=== PATIENT | female | born 1950 | race Hispanic/Latino ===

== ENCOUNTER 2020-04-12 06:34 | Observation (INO) | payer MEDICARE, OTHER ==
--- NOTE | 2020-04-08 14:20 | Diagnostic Imaging Report ---
EXAMINATION: CHEST 2 VIEWS INDICATION: Preop for surgery ^[id number] ^1325 ^PRE OP COMPARISON: None FINDINGS: TUBES and LINES: None. LUNGS: Lungs are well inflated. Lungs are clear. There is no evidence of pneumonia or pulmonary edema. PLEURA: No pleural effusion or pneumothorax. HEART AND MEDIASTINUM: Tortuous thoracic aorta. The cardiomediastinal silhouette is otherwise unremarkable. BONES AND SOFT TISSUES: No acute osseous lesion. Soft tissues are unremarkable. UPPER ABDOMEN: No free air under the diaphragm. IMPRESSION: Tortuous thoracic aorta. No acute thoracic abnormality. Signed by: Dr. Phillip Rodriguez M.D. on 04/08/2020 2:17 PM
[~2020-04-12] VITALS: Ht 152.4 cm; Wt 90.3 kg
[~2020-04-12 06:34] MED LIST: ATORVASTATIN CA20 MG PO; CELEBREX100 MG PO; LOSARTAN-HCTZ1 EAC2 PO; SODIUM CHLORIDE 0.9% 500ML 500 ML ONE; TRANEXAMIC ACID 1,000 MG/10 ML ML ONE; VANCOMYCIN HCL 1,000 MG ONE
[2020-04-12] MEDS ORDERED: CELECOXIB 200 MG CAP ONE (07:44)
[2020-04-12] MEDS ORDERED: GABAPENTIN 300 MG CAP ONE (07:45)
[2020-04-12] MEDS ORDERED: DEXAMETHASONE SOD PHOS 10 MG/1 ML VIAL ONE (07:45)
[2020-04-12] MEDS ORDERED: CEFAZOLIN SOD 1 GM/NS 50ML 100 ML IV ONE (07:45)
[2020-04-12] MEDS ORDERED: ROPIVACAINE 246.25 MG, EPINEPHRINE HCL 1:1000 1ML 0.5 MG, CLONIDINE HCL 0.08 MG, KETORO... INJ ONE ×5 (08:00)
[2020-04-12] MEDS ORDERED: ONDANSETRON HCL INJ 2MG/ML 2ML 2 MG/ML VIAL IV PRN (10:45)
[2020-04-12] MEDS ORDERED: DIPHENHYDRAMINE HCL INJ 50 MG/ML VIAL IV PRN (10:45)
[2020-04-12] MEDS ORDERED: HYDROCODONE/APAP 5MG-325MG TAB PO PRN (10:45)
[2020-04-12] MEDS ORDERED: DOCUSATE SODIUM 100 MG CAP PO PRN (10:45)
[2020-04-12] MEDS ORDERED: HYDROCODONE/APAP 7.5MG-325MG 1 EA TAB PO PRN (10:45)
[2020-04-12] MEDS ORDERED: ACETAMINOPHEN 650 MG SUPP PR PRN (10:45)
--- NOTE | 2020-04-12 11:12 | Diagnostic Imaging Report ---
Exam: Left knee 2 views History: Postoperative evaluation Comparison: None. Findings: See impression Impression: Postoperative knee radiograph for a left total knee arthroplasty with expected postsurgical change. No complication. Signed by: Dr. Cloeman Perez M.D. on 04/12/2020 11:08 AM
[2020-04-12] MEDS ORDERED: FENTANYL CITRATE/PF 100MCG/2 ML INJ ONE ×2 (11:17→12:59)
--- NOTE | 2020-04-12 11:18 | Operative Report ---
DATE OF PROCEDURE: 04/12/2020 SURGEON: Reilly Pacheco MD CONTROL SYSTEMS TECHNICIAN: Paramjit Sibley, certified PA. PREOPERATIVE DIAGNOSIS: Osteoarthritis, left knee. POSTOPERATIVE DIAGNOSIS: Osteoarthritis, left knee. PROCEDURE: Left total knee arthroplasty, * added complexity secondary to BMI. INDICATIONS: The patient is a 69-year-old lady, who has end-stage arthritis of her left knee. She has failed conservative management and would like to proceed with a left total knee replacement. The risks and benefits of the procedure have been discussed at length. All of her questions have been answered. The added challenges, the potential risks for complications due to her body mass index of 39.1 have been explained. She states she understands and feels like she has made reasonable efforts to lose weight. She would like to proceed with the surgery. PROCEDURE IN DETAIL: The patient was brought to the operating room and placed under general anesthetic. She received a regional block, tranexamic acid, and prophylactic antibiotics in the holding area. Her left lower extremity was prepped and draped in a sterile manner. Preoperative time-out was performed. The extremity was exsanguinated and a proximal tourniquet was inflated to 300 mmHg. An anterior incision with a medial parapatellar arthrotomy was performed. Care was taken to limit the amount of the subcutaneous dissection and creation of space. Added challenges were encountered due to the difficult exposure and altered surgical field. The knee was brought up into flexion with the patella everted. The anterior cruciate ligament was chronically deficient. She had complete loss of articular cartilage in the medial compartment down to polished subchondral bone. Meniscal remnants and marginal osteophytes were removed. An extramedullary cutting guide was placed and the proximal tibia was resected. The tibial base plate was a size 3. Again, challenges were encountered getting appropriate exposure. The central fin punch was impacted and attention was directed towards the distal femur. An intramedullary cutting guide was used to resect the distal femur in 6 degrees of valgus and rotation, referencing off a combination of landmarks including Whitesides line, the epicondylar axis, and the posterior condyles. The femoral component was a size 4. The anterior, posterior, and notch cuts were made. A trial reduction was performed. A 9 mm posterior stabilized tibial insert provided appropriate soft tissue balancing in full extension and 90 degrees of flexion. The patella was resurfaced with a 29 mm x 9 mm patellar button. The thickness was checked before and after resurfacing and was right around 22 mm. Patellar tracking was concentric. The trial implants were then all removed. The knee was thoroughly irrigated with a shower tip pulsatile lavage. A 100 mL premixed pericapsular HARVEY injection was injected into the surrounding soft tissue. The components were cemented into place using a single mix of high viscosity Biomet cement preloaded with antibiotics. Care was taken to make sure all extravasated cement was removed. The wound was further irrigated while the cement cured. The arthrotomy was closed after sprinkling 500 mg of vancomycin powder into the wound. Interrupted #1 Ethibond was used to close the arthrotomy. The knee was put through flexion and extension to ensure a secured closure. The skin was carefully closed with subcuticular Vicryl and elke. A sterile Aquacel bandage was applied. The patient was extubated and transported to the recovery room in stable condition. Blood loss was minimal. All needle and sponge counts were correct. Reilly Pacheco MD DR/JITENDRA /[id number]
[2020-04-12] MEDS ORDERED: ROPIVACAINE 0.5% 5 MG/ML 30 ML SDV ONE (12:32)
[2020-04-12] MEDS ORDERED: LIDOCAINE 2%/ EPINEPHRINE 20ML MDV ONE (12:32)
[2020-04-12] MEDS ORDERED: MIDAZOLAM HCL 2 MG/2 ML VIAL ONE (12:59)
[2020-04-12] MEDS ORDERED: SEVOFLURANE INHAL SOLN 250 ML PEN BTL ONE (13:18)
[2020-04-12] MEDS ORDERED: PROPOFOL IV EMULSION 10 MG/ML 20 ML VIAL ONE (13:18)
[2020-04-12] MEDS ORDERED: KETOROLAC TROMETHAMINE 30 MG/ML VIAL ONE (13:18)
[2020-04-12] MEDS ORDERED: LIDOCAINE HCL 2% LOCAL INJ 5 ML SDV VIAL INJ ONE (13:18)
[2020-04-12] MEDS ORDERED: ONDANSETRON HCL INJ 2MG/ML 2ML 2 MG/ML VIAL ONE (13:18)
--- NOTE | 2020-04-12 14:58 | NUR ---
RECEIVED REPORT FROM MARITIME ENGINEER. PT HAD LEFT TOTAL KNEE SURGERY. COMING TO ROOM 113.
[2020-04-12 15:07] VITALS: BP 117/60
[2020-04-12 15:13] VITALS: BP 113/68
[2020-04-12] MEDS ORDERED: ACETAMINOPHEN 1000 MG/100 ML IV PRN (16:00)
[2020-04-12 16:35] VITALS: BP 113/68
[2020-04-12] MEDS: SODIUM CHLORIDE 0.9% 1000ML 1,000 ML IV SCH ×2 (17:55→20:45)
[2020-04-12] MEDS: ASPIRIN 325 MG TAB PO SCH (17:55)
[2020-04-12] MEDS: CELECOXIB 100 MG CAP PO SCH (17:55)
[2020-04-12] MEDS: CEFAZOLIN SOD 1 GM/NS 50ML 50 ML IV SCH (17:55)
--- NOTE | 2020-04-12 18:43 | NUR ---
WALKING ROUNDS PERFORMED, RECEIVED PT LYING SEMI FOWLERS IN BED, AAOX3, RR EVEN AND NON-LABORED, ON ROOM AIR. NO S/SX OF DISTRESS NOTED. MONTSERRAT WRAP TO (L) LEG CDI. LEFT PT LAYING SEMI FOWLERS IN BED, BED IN LOW LOCKED POSITION, SIDE RAILS UPX2, CALL LIGHT AND PHONE WITHIN REACH.
[2020-04-12 20:00] VITALS: BP 107/54
[2020-04-12] MEDS ORDERED: ZOLPIDEM TARTRATE 5 MG TAB PO PRN (21:00)
[2020-04-12] MEDS ORDERED: ATORVASTATIN 40 MG TAB PO SCH (21:00)
[2020-04-12] MEDS ORDERED: ATORVASTATIN 20 MG TAB PO SCH (21:00)
[2020-04-12 21:47] VITALS: BP 107/54
[2020-04-12] MEDS: KETOROLAC TROMETHAMINE 30 MG/ML VIAL IV PRN (23:27)
[2020-04-13] VITALS: BP 115/55
[2020-04-13] MEDS: CEFAZOLIN SOD 1 GM/NS 50ML 50 ML IV SCH ×2 (01:06→10:36)
[2020-04-13 04:00] VITALS: BP 116/54
[2020-04-13 05:25] LABS: HEMATOCRIT 35.4 % (34.2-44.1); HEMOGLOBIN 12.2 g/dL (12.0-16.0)
--- NOTE | 2020-04-13 05:26 | Consultation ---
DATE OF CONSULTATION: REASON FOR CONSULTATION: Postop medical management. HISTORY OF PRESENT ILLNESS: The patient is a 69-year-old lady, status post left knee arthroplasty, who is doing well postoperatively with minimal pain and denies any fever, chills, nausea, vomiting, headache, shortness of breath, or dizziness on review of systems. PAST MEDICAL HISTORY: Hypertension and hyperlipidemia. HOME MEDICATIONS: Celexa, losartan, hydrochlorothiazide, and atorvastatin. SOCIAL HISTORY: She works full-time. Denies smoking or alcohol. FAMILY HISTORY: Noncontributory. PHYSICAL EXAMINATION: VITAL SIGNS: Temperature 98.3, pulse 52, blood pressure 115/55, sats 96% on room air. GENERAL: No apparent distress, lying in bed. NECK: Supple. CARDIOVASCULAR: Regular rate and rhythm. No murmurs, rubs, or gallops. LUNGS: Clear to auscultation bilaterally. ABDOMEN: Good bowel sounds. Soft, nontender. EXTREMITIES: No clubbing or cyanosis. NEUROLOGIC: Nonfocal. Left knee is bandaged with no seepage. ASSESSMENT AND PLAN: 1. Left knee pain. We will continue with postoperative care and physical therapy. 2. Anemia. Check a CBC. 3. Hypertension. Continue to monitor blood pressure and continue with her home medications. 4. Hyperlipidemia. We will continue with her atorvastatin. Please see hospital chart for full details. MD SILVINO Chan/JITENDRA /[id number]
--- NOTE | 2020-04-13 06:00 | NUR ---
(L) MONTSERRAT WRAP REMOVED, AQUACEL DRESSING CDI TO (L) KNEE. APPLIED CRISTIAN HOSE TO (L) LEG.
[2020-04-13] MEDS: SODIUM CHLORIDE 0.9% 1000ML 1,000 ML IV SCH (06:39)
--- NOTE | 2020-04-13 07:02 | NUR ---
bedside shift report received from PM nurse. pt in stable condition.
[2020-04-13 07:15] VITALS: BP 116/54
[2020-04-13 08:08] VITALS: BP 101/49
[2020-04-13] MEDS ORDERED: HYDROCHLOROTHIAZIDE 25 MG TAB PO SCH (09:00)
[2020-04-13] MEDS ORDERED: CELECOXIB 100 MG CAP PO SCH (09:00)
[2020-04-13] MEDS ORDERED: NON-FORMULARY MEDICATION (Losartan/Hydrochlorothiazide (Losartan-Hctz 100-12.5 Mg Tab) 1 T PO SCH (09:00)
[2020-04-13] MEDS ORDERED: LOSARTAN POTASSIUM 100 MG TAB PO SCH (09:00)
[2020-04-13] MEDS: ASPIRIN 325 MG TAB PO SCH (10:36)
[2020-04-13] MEDS: CELECOXIB 100 MG CAP PO SCH (10:36)
[2020-04-13 12:15] VITALS: BP 103/54
[2020-04-13] MEDS: KETOROLAC TROMETHAMINE 30 MG/ML VIAL IV PRN (12:32)
--- OUTSIDE RECORDS SUMMARY | 2020-04-18 14:46 | XMS REPORT | Continuity of Care Document ---
Author Author [facility] [facility] [employer] Address Unknown Phone Unavailable Care Team Providers Care Extension Worker Name Role Phone [employer] Unavailable Un available Problems Problem Status Onset Date Classification Date Reported Comments Source 719.46 - JOINT PAIN-L/LE Active 04/05/2015 [facility] [place] Hyperlipidemia (disorder) Acti ve 09/04/2014 Problem 12/03/2019 Data migrated from [employer] on . Data migrated from [employer] on 12/22/14. [facility] [place], [facility] [place] [facility] CONTACT DERMATITIS&OTHER ECZEMA DUE UNSPEC CAUSE Active 12/11/2013 Condition 12/11/2013 Medical Group Influenza-like illness (finding) Resolved 07/17/2013 Problem 12/03/2019 Data migrated from [email or web address] on 02/06. [facility] [place], [facility] [place],[facility] INFLUENZA LIKE ILLNESS Active 07/17/2013 Condition 12/11/2013 Medical Group Urinary tract infectious disease (disorder) Resolved 12/23/2012 Problem 12/03/2019 Data migrated from [employer] on 02/05/15. [facility] [place], [facility] [place],[facility] [place] URINARY TRACT INFECTION SITE NOT SPECIFIED Inactive 12/23/2012 Condition 12/11/2013 Medical Group Encounter for screening mammogram for ma lignant neoplasm of breast 12/03/2019 [facility] [place] Hypertensive disorder, systemic arterial (disorder) Resolved Problem 12/03/2019 [facility] [place], [facility] [place],[facility] Obesity (disorder) Active Problem 12/03/2019 [facility] [place], [facility] [place] [facility] [facility] FH DIABETES - DM Active Condition 12/11/2013 Medical Group LUMBAR RADICULOPATHY Active [facility] R PFS AND LUMBAR RADICULOPATHY Active [facility] Medications Medication Details Route Status Patient Instructions Ordering Provider Order Date Source TRIAMCINOLONE ACETONIDE 0.1 % CREA AAA bid Active 12/11/2013 Medical Group TAMIFLU 75 MG CAPS Take 1 caps ule PO BID No Longer Active 07/17/2013 Medical Group BENZONATATE 200 MG CAPS Take 1 capsule PO TID as needed No Longer Active 07/17/2013 Medical Group BENZONATATE 200 MG CAPS Take 1 capsule PO TID as needed No Longer Active 07/17/2013 [facility] LISINOPRIL-HYDROCHLOROTHIAZIDE 20-25 MG TABS 1 tab daily Active 12/23/2012 [facility] CRESTOR 40 MG TABS 1 tab daily Active 12/23/2012 Medical Group BACTRIM DS 800-160 MG TABS 1 t ab po bid No Longer Active 12/23/2012 [facility] LISINOPRIL-HYDROCHLOROTHIAZIDE 20-25 MG TABS 1 tab daily Active 12/23/2012 [facility] CRESTOR 40 MG TABS 1 tab daily Active 12/23/2012 [facility] LISINOPRIL-HYDROCHLOROTHIAZIDE 20-25 MG TABS 1 tab daily Active 12/23/2012 [facility] Allergies, Adverse Reactions, Alerts Substance Category Reaction Severity Reaction type Status Date Reported Comments Source No Known Medication Allergies Assertion Drug aller gy [facility] [place] Immunizations No Data Provided for This Section Results Order Name Results Value Reference Range Date Interpretation Comments Source Urinalysis UA COLOR Yellow 12/23/2012 [facility] Urinalysis BACTERIA URN Occas ional 12/23/2012 [facility] Urinalysis UA COLOR Yellow 12/23/2012 [facility] Urinalysis BACTERIA URN Occas ional 12/23/2012 [facility] Pathology Reports No Data Provided for This Section Diagnostic Reports Report Value Date Source Breast Mammo Scrn JACOB w danielito incl CAD MA BILATERAL DIGITAL SCREENING MAMMOGRAM 3D/2D WITH CAD: 12/01/2019 CLINICAL: /Screening. Current study was evaluated with a Computer Aided Detection (CAD) system. COMPARISON:Comparison is made to exams dated: 11/28/2018 mammogram, 09/04/2017 mammogram, 11/21/2014 mammogram - [facility], 10/04/2012 mammogram - [facility], and 10/11/2013 mammogram - [facility]. TECHNIQUE: Digital Breast Tomosynthesis was performed and utilized for Interpretation. Current study was also evaluated with a Computer Aided Detection (CAD) system. FINDINGS: There are scattered fibroglandular densities in both breasts. No significant masses, calcifications, or other findings are seen in either breast. There has been no significant interval change. IMPRESSION: NEGATIVE RECOMMENDATION:There is no mammographic evidence of malignancy. A 1 year screening mammogram is recommended.(12/01/2020) This exam was interpreted at [id number] at [facility]. Professional services are provided by the [facility] Division of Diagnostic Imaging. Princess Maravilla M.D. sm/penrad:12/02/2019 09:14:21 Side Laster(s): [facility] 1/2 Mammogram BI-RADS: 1 Negative 12/01/2019 [facility] [place] Breast Mammo Scrn JACOB incl CAD MA BILATERAL DIGITAL SCREENING MAMMOGRAM WITH CAD: 11/28/2018 CLINICAL: Encounter For Screening Mammogram For Malignant Neoplasm Of Breast/Z12.31. Current study was evaluated with a Computer Aided Detection (CAD) system. COMPARISON:Comparison is made to exams dated: 09/04/2017 mammogram, 11/21/2014 mammogram, 10/11/2013 mammogram - [facility], 10/04/2012 mammogram, and 09/07/2011 mammogram - [facility]. TECHNIQUE: Mammographic views were obtained using digital acquisition. Current study was also evaluated with a Computer Aided Detection (CAD) system. FINDINGS: There are scattered fibroglandular densities in both breasts. No significant masses, calcifications, or other findings are seen in either breast. There has been no significant interval change. IMPRESSION: NEGATIVE RECOMMENDATION:There is no mammographic evidence of malignancy. A 1 year screening mammogram is recommended.(11/29/2019) This exam was interpreted at [id number] for HOLLIE [place] 15. Professional services are provided by the [facility] Division of Diagnostic Imaging. Kim Hughes M.D. ms/penrad:11/28/2018 09:46:18 Side Laster(s): RT Anaya(R)(M), [facility] letter sent: BI-RADS 1/2 Mammogram BI-RADS: 1 Negative 11/28/2018 [facility] [place] Breast Mammo Scrn JACOB incl CAD MA BILATERAL DIGITAL SCREENING MAMMOGRAM WITH CAD: 09/04/2017 CLINICAL: Z12.31 Encounter For Screening Mammogram For Malignant Neoplasm Of Breast/Z12.31 Encounter For Screening Mammogram For Malignant Neoplasm Of Breast. Current study was evaluated with a Computer Aided Detection (CAD) system. COMPARISON:Comparison is made to exams dated: 11/21/2014 mammogram, 10/11/2013 mammogram - [facility], 10/04/2012 mammogram, 09/07/2011 mammogram - [facility], 07/06/2006 mammogram, and 02/11/2004 mammogram - [facility]. TECHNIQUE: Mammographic views were obtained using digital acquisition. Current study was also evaluated with a Computer Aided Detection (CAD) system. FINDINGS: There are scattered fibroglandular densities in both breasts. No significant masses, calcifications, or other findings are seen in either breast. There has been no significant interval change. IMPRESSION: NEGATIVE RECOMMENDATION:There is no mammographic evidence of malignancy. A 1 year screening mammogram is recommended.(09/05/2018) This exam was interpreted at [id number] at [facility]. Professional services are provided by the [facility] Division of Diagnostic Imaging. Chloe Vernon M.D. to/penrad:09/05/2017 08:56:32 Side Laster(s): RT Ivy(R)(M), [facility] letter sent: BI-RADS 1/2 Mammogram BI-RADS: 1 Negative 09/04/2017 [facility] [place] Ext Lower Arterial Doppler unilat US Name: KARAN BUTCHER : 1950 Ordering Physician: Lesia Buck Extremity lower art Dopp US w/o press : Apr 07, 2015 01:36:00 PM. CLINICAL INDICATION: RIGHT LEG PAIN REASON FOR EXAM: See Clinic Indication Comparison Examination: None. FINDINGS: Right lower extremity arterial Doppler evaluation without pressures was performed. Grayscale and color Duplex imaging of the right lower extremity shows no evidence of abnormal peak velocities that suggest a focal hemodynamicly significant stenosis. There are normal bilateral lower extremity segmental triphasic waveforms. B-mode imaging shows no plaque formation or stenosis in the right lower extremity arteries. IMPRESSION: There is no evidence of significant peripheral arterial occlusive disease in the right lower extremity. SL: NE [facility] 53 [facility]07[facility] Lower Venous Doppler Unilat US NAME: KARAN BUTCHER : 1950 SEX: F Ordering Physician: Lesia Buck Right Extremity lower venous Doppler US : Apr 07, 2015 01:36:00 PM. CLINICAL INDICATION: RIGHT LEG PAIN. Comparison Examination: None. TECHNIQUE: Sonographic evaluation of the lower extremity veins was performed using high resolution B-mode imaging, along with pulse and color Doppler imaging. FINDINGS: The visualized distal external iliac vein shows normal waveforms and Doppler signal. The common femoral vein, superficial femoral vein, popliteal vein and visualized posterior tibial/calf veins show normal waveforms and Doppler signal. There is compressibility of the veins. There is normal augmentation on calf compression. There is no echogenic debris to suggest deep venous thrombosis. The visualized greater saphenous superficial vein appears unremarkable. Right lateral knee region deep 3.8 x 0.9 x 2.5 cm fluid collection is seen. This could be related to a joint effusion, although other etiology cannot be excluded. MRI of the knee may be performed for further evaluation. IMPRESSION: 1. No deep venous thrombosis of right lo wer extremity. 2. Right lateral knee region deep 3.8 x 0.9 x 2.5 cm fluid collection, as noted above. REFERENCE: Deep veins include: common femoral vein, superficial femoral vein (also can be referred to as 'femoral vein'), popliteal vein, posterior tibial vein Superficial veins include: greater and lesser saphenous veins SL: 24 04/07/2015 AP[facility] [place] Consultation Notes No Data Provided for This Section Discharge Summaries No Data Provided for This Section History and Physicals No Data Provided for This Section Vital Signs Vital Sign Value Date Comments Source Weight 207 12/11/2013 Medical Group Temperature Oral (F) 98.4 F 12/11/2013 Medical Group Respitory Rate 18 12/11/2013 Medical Group Heart Rate 64 12/11/2013 Medical Group Systolic (mm Hg) 122 12/11/2013 Medical Group Diastolic (mm Hg) 60 12/11/2013 Medical Group Weight 204 07/17/2013 Medical Group Temperature Oral (F) 100.2 F 07/17/2013 Medical Group Systolic (mm Hg) 129 07/17/2013 Medical Group Diastolic (mm Hg) 61 07/17/2013 Medical Group Respitory Rate 18 07/17/2013 Medical Group Heart Rate 83 07/17/2013 Medical Group Weight 200 12/23/2012 Medical Group Height 59 0 12/23/2012 Medical Group Temperature Oral (F) 100.6 F 12/23/2012 Medical Group Respitory Rate 18 12/23/2012 Medical Group Heart Rate 100 12/23/2012 Medical Group Systolic (mm Hg) 113 12/23/2012 Medical Group Diastolic (mm Hg) 56 12/23/2012 Medical Group Encounters Location Location Details Encounter Type Encounter Number Reason For Visit Attending Provider ADM Date DC Date Status Source [facility] Lab Report [id number] Lesia Buck MD 12/23/2012 12/23/2012 [facility] Office Visit [id number] Chandrika Renner NP 07/17/2013 07/17/2013 [facility] Office Visit [id number] Chandrika Renner APRN 12/11/2013 12/11/2013 Medical Group [facility] [place] [facility] [id number] Andrés Gaspar 11/21/2014 11/22/2014 [facility] [place] Outpatient [id number] LESIA DO 01/18/2015 Active [facility] Outpatient [id number] LESIA DO 04/05/2015 Active [facility] Outpatient Imaging [facility] Outpt Diag Services [id number] Lesia Do 04/08/2015 [facility] [place] [facility] OP Therapy Patients [id number] Wasyl Meseret 07/14/2015 08/13/2015 [facility] [place] Outpatient Imaging - [place] Out[facility] Di[facility] [id number] Andrés Gaspar 09/04/2017 09/05/2017 [facility] [place] [facility] - [place] Outpt Diag Services [id number] 07 Andrés Gaspar 11/28/2018 11/29/2018 [facility] [place] [facility] Outpatient Imaging - [place] Outpt Diag Services [id number] Andrés Chasity 12/01/2019 12/02/2019 [facility] [place] Procedures Procedure Code Date Perfomer Comments Source Hysterectomy [id number] [facility] [place], [facility] [place],[facility] summer Knee joint operation [id number] [facility] [place], [facility] [place],[facility] summer Assessment and Plan No Data Provided for This Section Plan of Care No Data Provided for This Section Social History Social History Date Source Social History TypeResponse Smoking Status Never smoker; Exposure to Tobacco Smoke None; Cigarette Smoking Last 365 Days No; Reg Smoking Cessation Counseling No entered on: 04/05/15 04/05/2015 [facility] [place] Social History TypeResponse Smoking Status Never smoker; Exposure to Tobacco Smoke None; Cigarette Smoking Last 365 Days No; Reg Smoking Cessation Counseling No 04/05/2015 [facility] Social History TypeResponse Smoking Status Never smoker; Exposure to Tobacco Smoke None; Cigarette Smoking Last 365 Days No; Reg Smoking Cessation Counseling No 04/05/2015 [facility] k Family History No Data Provided for This Section Advance Directives No Data Provided for This Section Functional Status No Data Provided for This Section
== END 2020-04-13 13:30 | disposition home or self-care (01) ==
LOC: OR 06:34 → PACU V 10:34 → MED/SURG 15:02
PROVIDERS: ADMIT Specialist; ATTEND Specialist
DX: M17.0 Bilateral primary osteoarthritis of knee (principal); E66.01 Morbid (severe) obesity due to excess calories; I10 Essential (primary) hypertension; E78.5 Hyperlipidemia, unspecified; D64.9 Anemia, unspecified; Z68.38 Body mass index [BMI] 38.0-38.9, adult; Z88.8 Allergy status to other drugs, medicaments and biological substances; Z91.018 Allergy to other foods; Z11.59 Encounter for screening for other viral diseases
CPT/HCPCS: 27447; 36415; 71046; 73560; 85014; 85018; 86850; 86900; 86920; 97110; 97116 ×3; 97161; C1713 ×5; G0378 ×2; J0171; J0690 ×2; J1100; J1885 ×2; J2001 ×2; J2250; J2405; J2704; J2795; J3010; J3370; J7030; J7040; U0002

== ENCOUNTER 2020-11-29 07:39 | Observation (INO) | payer MEDICARE ==
[2020-11-25 12:52] LABS: BASOPHILS # (AUTO) 0.1 (0.0-0.1); BASOPHILS % 1.8 % (0.0-1.0); EOSINOPHILS # (AUTO) 0.1 (0.0-0.4); EOSINOPHILS % 1.5 % (0.0-6.0); HEMATOCRIT 42.2 % (34.2-44.1); HEMOGLOBIN 14.2 g/dL (12.0-16.0); LYMPHOCYTES % 21.1 % (18.0-39.1); MEAN CORPUSCULAR HGB CONC 33.6 g/dL (31-35); MEAN CORPUSCULAR VOLUME 89.2 fL (81-99); MONOCYTES # (AUTO) 0.4 (0.2-0.8); MONOCYTES % 8.6 % (4.4-11.3); NEUTROPHILS # (AUTO) 3.1 (2.1-6.9); NEUTROPHILS % 66.8 % (38.7-80.0); PLATELET COUNT 247 x10e3/uL (140-360); RED BLOOD COUNT 4.73 x10e6/uL (3.6-5.1); RED CELL DISTRIBUTION WIDTH 13.7 % (11.7-14.4)
[2020-11-25 13:10] LABS: ANION GAP 14.6 mmol/L (8-16); BLOOD UREA NITROGEN 18 mg/dL (7-26); BUN/CREATININE RATIO 26 (6-25); CALCIUM 9.4 mg/dL (8.4-10.2); CARBON DIOXIDE 25 mmol/L (22-29); CHLORIDE 107 mmol/L (98-107); CREATININE, SERUM 0.69 mg/dL (0.57-1.11); EST GLOMERULAR FILTRATION RATE > 60 ML/MIN (60-); GLUCOSE 105 mg/dL (74-118); POTASSIUM 3.6 mmol/L (3.5-5.1); SODIUM 143 mmol/L (136-145)
[~2020-11-29] VITALS: Ht 152.4 cm; Wt 91.2 kg
[~2020-11-29 07:39] MED LIST changes: +FENTANYL CITRATE/PF 100MCG/2 ML INJ ONE; +MIDAZOLAM HCL 2 MG/2 ML VIAL ONE; -SODIUM CHLORIDE 0.9% 500ML 500 ML ONE; -TRANEXAMIC ACID 1,000 MG/10 ML ML ONE; -VANCOMYCIN HCL 1,000 MG ONE
[2020-11-29] MEDS ORDERED: ROPIVACAINE 246.25 MG, EPINEPHRINE HCL 1:1000 1ML 0.5 MG, CLONIDINE HCL 0.08 MG, KETORO... INJ ONE ×5 (08:00)
[2020-11-29] MEDS ORDERED: CELECOXIB 200 MG CAP ONE (08:19)
[2020-11-29] MEDS ORDERED: DEXAMETHASONE SOD PHOS 10 MG/1 ML VIAL ONE (08:19)
[2020-11-29] MEDS ORDERED: GABAPENTIN 300 MG CAP ONE (08:19)
[2020-11-29] MEDS ORDERED: CEFAZOLIN SOD 1 GM/NS 50ML 100 ML IV ONE (08:20)
[2020-11-29] MEDS ORDERED: SODIUM CHLORIDE 0.9% 500ML 500 ML ONE (08:50)
[2020-11-29] MEDS ORDERED: VANCOMYCIN HCL 1,000 MG ONE (08:50)
[2020-11-29] MEDS ORDERED: TRANEXAMIC ACID 1,000 MG/10 ML ML ONE (08:50)
[2020-11-29] MEDS ORDERED: ACETAMINOPHEN 650 MG SUPP PR PRN (11:00)
[2020-11-29] MEDS ORDERED: ONDANSETRON HCL INJ 2MG/ML 2ML 2 MG/ML VIAL IV PRN (11:00)
[2020-11-29] MEDS ORDERED: DOCUSATE SODIUM 100 MG CAP PO PRN (11:00)
[2020-11-29] MEDS ORDERED: KETOROLAC TROMETHAMINE 30 MG/ML VIAL IV PRN (11:00)
[2020-11-29] MEDS ORDERED: ZOLPIDEM TARTRATE 5 MG TAB PO PRN (11:00)
[2020-11-29] MEDS ORDERED: FENTANYL CITRATE/PF 100MCG/2 ML INJ ONE (11:20)
[2020-11-29 13:27] VITALS: BP 136/71
[2020-11-29 13:29] VITALS: BP 136/71
[2020-11-29] MEDS: SODIUM CHLORIDE 0.9% 1000ML 1,000 ML IV SCH ×2 (14:18→20:27)
[2020-11-29] MEDS ORDERED: SEVOFLURANE INHAL SOLN 250 ML PEN BTL ONE (14:54)
[2020-11-29] MEDS ORDERED: EPHEDRINE SULFATE INJ 50 MG/ML VIAL ONE (14:54)
[2020-11-29] MEDS ORDERED: EYE LUBRICANT OPTH OINT 3.5GM TUBE OP ONE (14:54)
[2020-11-29] MEDS ORDERED: LIDOCAINE HCL 2% LOCAL INJ 5 ML SDV VIAL INJ ONE (14:54)
[2020-11-29] MEDS ORDERED: ONDANSETRON HCL INJ 2MG/ML 2ML 2 MG/ML VIAL ONE (14:54)
[2020-11-29] MEDS ORDERED: POVIDONE IODINE 0.05% 0.05 % ML PO ONE (14:54)
[2020-11-29] MEDS ORDERED: PROPOFOL IV EMULSION 10 MG/ML 20 ML VIAL ONE (14:54)
[2020-11-29] MEDS: HYDROCODONE/APAP 7.5MG-325MG 1 EA TAB PO PRN ×2 (15:18→20:20)
[2020-11-29] MEDS ORDERED: ROPIVACAINE 0.5% 5 MG/ML 30 ML SDV ONE (16:04)
[2020-11-29] MEDS: CELECOXIB 100 MG CAP PO SCH (16:14)
[2020-11-29] MEDS: ASPIRIN 325 MG TAB PO SCH (16:14)
[2020-11-29 17:01] VITALS: BP 108/62
[2020-11-29] MEDS: CEFAZOLIN SOD 1 GM/NS 50ML 50 ML IV SCH (17:02)
[2020-11-29 20:20] VITALS: BP 104/49
[2020-11-30] MEDS: HYDROCODONE/APAP 7.5MG-325MG 1 EA TAB PO PRN ×3 (00:20→09:57)
[2020-11-30 00:47] VITALS: BP 107/61
[2020-11-30] MEDS: CEFAZOLIN SOD 1 GM/NS 50ML 50 ML IV SCH ×2 (02:33→09:29)
[2020-11-30 04:49] VITALS: BP 129/50
[2020-11-30] MEDS: SODIUM CHLORIDE 0.9% 1000ML 1,000 ML IV SCH (04:51)
[2020-11-30 05:21] LABS: HEMATOCRIT 36.1 % (34.2-44.1); HEMOGLOBIN 12.4 g/dL (12.0-16.0)
[2020-11-30] MEDS: ASPIRIN 325 MG TAB PO SCH (08:55)
[2020-11-30] MEDS: CELECOXIB 100 MG CAP PO SCH (08:55)
[2020-11-30 08:56] VITALS: BP 116/67
[2020-11-30 08:57] VITALS: BP 116/67
[2020-11-30] MEDS ORDERED: ACETAMINOPHEN 1000 MG/100 ML IV PRN (11:00)
[2020-11-30 12:47] VITALS: BP 113/52
[2020-11-30] MEDS ORDERED: ONDANSETRON HCL 4 MG ORAL DISINTEGRATING TAB PO PRN (13:45)
[2020-11-30] MEDS ORDERED: CELECOXIB 200 MG CAP PO SCH (17:00)
[2020-11-30] MEDS ORDERED: ATORVASTATIN 40 MG TAB PO SCH (21:00)
== END 2020-11-30 13:48 | disposition home or self-care (01) ==
LOC: OR 07:39 → PACU V 10:54 → MED/SURG 13:00
PROVIDERS: ADMIT Specialist; ATTEND Specialist
DX: M17.0 Bilateral primary osteoarthritis of knee (principal); Z20.822 Contact with and (suspected) exposure to COVID-19; E66.01 Morbid (severe) obesity due to excess calories; Z68.35 Body mass index [BMI] 35.0-35.9, adult; D64.9 Anemia, unspecified; E78.5 Hyperlipidemia, unspecified; Z01.818 Encounter for other preprocedural examination
CPT/HCPCS: 27447; 36415 ×2; 73560; 80048; 85014; 85018; 85025; 86850; 86900; 86920; 97116; 97162; 97530 ×2; C1713; G0378 ×2; J0171; J0690 ×2; J1100; J1885; J2001; J2250; J2405; J2704; J2795; J3010 ×2; J3370; J7030; J7040; U0002; C1776

== ENCOUNTER → 2023-11-01 | Day surgery (SDC) | payer OTHER ==
[2023-10-25 15:42] LABS: BASOPHILS # (AUTO) 0.1 (0.0-0.1); BASOPHILS % 1.4 % (0.0-1.0); EOSINOPHILS # (AUTO) 0.1 (0.0-0.4); EOSINOPHILS % 1.9 % (0.0-6.0); HEMATOCRIT 41.8 % (34.2-44.1); LYMPHOCYTES # (AUTO) 1.2 (1.0-3.2); LYMPHOCYTES % 20.9 % (18.0-39.1); MEAN CORPUSCULAR HGB CONC 33.5 g/dL (31-35); MEAN CORPUSCULAR VOLUME 92.7 fL (81-99); MONOCYTES # (AUTO) 0.5 (0.2-0.8); MONOCYTES % 7.9 % (4.4-11.3); NEUTROPHILS # (AUTO) 3.9 (2.1-6.9); NEUTROPHILS % 67.6 % (38.7-80.0); PLATELET COUNT 252 x10e3/uL (140-360); RED BLOOD COUNT 4.51 x10e6/uL (3.6-5.1); RED CELL DISTRIBUTION WIDTH 12.9 % (11.7-14.4); WHITE BLOOD COUNT 5.83 x10e3/uL (4.8-10.8)
[2023-10-25 16:04] LABS: CALCIUM 9.6 mg/dL (8.4-10.2); CREATININE, SERUM 0.78 mg/dL (0.57-1.11)
[~2023-11-01] MED LIST changes: +BALANCED SALT SOLN (OPTH) 15 ML BTL IO ONE; +BUPIVACAINE HC 0.75% PF 10ML VIAL INJ ONE; +EPINEPHRINE HCL 1:1000 1ML 1 MG/ML AMP ONE; +LIDOCAINE 2% /EPINEPHRINE 20 ML SDV INJ ONE; +LIDOCAINE HCL 2% LOCAL INJ 5 ML SDV VIAL INJ ONE; +LIDOCAINE HCL-PF 4% 40 MG/1 ML 5ML AMP ONE; +LUMIGAN2.5 M1 OP; -MIDAZOLAM HCL 2 MG/2 ML VIAL ONE; +NEOMYCIN/POLYMYXIN/DEX (OPTH) 3.5 GM TUBE ONE; +POVIDONE IODINE 5% (OPTH) 30 ML BTL ONE; +PROPOFOL IV EMULSION 10 MG/ML 20 ML VIAL ONE
[2023-11-01] MEDS: MOXIFLOXACIN HCL(OPTH) 3 ML BTL ONE (09:11)
[2023-11-01] MEDS: PHENYLEPHRINE HCL 2 ML DROPS ONE (09:11)
[2023-11-01] MEDS: LACTATED RINGER'S 1,000 ML ONE (09:11)
[2023-11-01 10:54] VITALS: TEMP 97.6
[2023-11-01 11:14] VITALS: BP 135/75; PULSE 56; RESP 18; O2SAT 100
== END | disposition home or self-care (01) ==
LOC: OR 07:24
PROVIDERS: ATTEND Ophthalmology
DX: H25.11 Age-related nuclear cataract, right eye (principal); I10 Essential (primary) hypertension; E78.5 Hyperlipidemia, unspecified; I45.10 Unspecified right bundle-branch block; J45.909 Unspecified asthma, uncomplicated; E66.9 Obesity, unspecified; K21.9 Gastro-esophageal reflux disease without esophagitis; M19.90 Unspecified osteoarthritis, unspecified site; Z88.6 Allergy status to analgesic agent; Z91.018 Allergy to other foods; Z01.810 Encounter for preprocedural cardiovascular examination; Z01.812 Encounter for preprocedural laboratory examination; Z79.899 Other long term (current) drug therapy
CPT/HCPCS: 36415; 66984; 80048; 85025; 93005; J0171; J2001 ×2; J2704; J3010; J7121; V2632